=== PATIENT | female | born 1970 | race Caucasian/White ===

== ENCOUNTER → 2017-07-06 | Outpatient (CLI) | payer OTHER ==
--- NOTE | 2017-07-06 10:26 | RAD ---
Examination: 3 views of the right History history of right knee pain, history of patella fracture. Comparison: 12/12/2011 Findings There is mild joint space loss identified in the medial compartment. There is moderate joint space loss identified with femoral compartment. There is mild joint space loss identified in the lateral compartment femoral compartment There is a small bony projection identified in the intercondylar notch just to superior to the tibial spine grossly similar to prior exam could be osteophyte or loose body. Lucency identified in the inferior aspect of the patella probably old fracture grossly similar to prior exam. Small knee joint effusion. Impression 1. Unchanged exam.
== END | disposition home or self-care (01) ==
LOC: DXRAD 09:48
PROVIDERS: ATTEND Nurse Practitioner Family
DX: M25.461 Effusion, right knee (principal); M25.561 Pain in right knee
CPT/HCPCS: 73562

== ENCOUNTER → 2017-11-12 | Outpatient (CLI) | payer OTHER ==
--- NOTE | 2017-11-12 14:17 | RAD ---
DATE: 11/12/2017 EXAM: DIGITAL DIAGNOSTIC LT, BREAST LEFT HISTORY: Nodule in the upper outer left breast seen on an outside screening mammogram COMPARISON: Outside screening mammogram 10/31/2017 Findings: Diagnostic left breast mammogram: This study was interpreted with the benefit of Computerized Aided Detection (CAD). The breast parenchyma shows scattered fibroglandular densities. Breast parenchyma level B. Full field MLO view and spot compression MLO and cc views were obtained of the upper outer left breast. There is a 0.9 cm oval circumscribed mass at the 2:00 position 9 cm from the nipple in the left breast. There is a focal asymmetry at the 2:00 position 6 areas from the nipple in the left breast. Patient will proceed to ultrasound for further evaluation. Limited left breast ultrasound. Survey of the upper outer quadrant left breast was performed. There is a benign intramammary lymph node at the 2:00 position 9 cm from the nipple corresponding to the 0.9 cm nodule seen on mammogram. There is probable focal fibroglandular tissue at the 2:00 position 6 cm from the nipple with no suspicious mass. At the 1:00 position 2 cm from the nipple, there is a circumscribed hypoechoic structure with minimal internal debris, no internal blood flow, and no significant posterior acoustic enhancement. Impression: 1. At the 1:00 position 2 cm from the nipple in the left breast, subcentimeter hypoechoic structure with internal debris and may represent a complicated cyst, though indeterminate. Left breast ultrasound in 6 months is recommended. 2. At 2:00 position 6 cm from the nipple in the left breast, focal asymmetry which does not have a sonographic correlate and may represent focal fibroglandular tissue. Diagnostic left breast mammogram to include spot compression views and 6 month recommended. 3. At the 2:00 position, 9 cm from the nipple, benign intramammary lymph node. BI-RADS CATEGORY: 3 PROBABLY BENIGN FINDING(S)-SHORT INTERVAL FOLLOW-UP SUGGESTED RECOMMENDED FOLLOW-UP: 6M 6 MONTH FOLLOW-UP PQRS compliance statement: Patient information was entered into a reminder system with a target due date for the next mammogram. Mammography is a sensitive method for finding small breast cancers, but it does not detect them all and is not a substitute for careful clinical examination. A negative mammogram does not negate a clinically suspicious finding and should not result in delay in biopsying a clinically suspicious abnormality. "Our facility is accredited by the [employer] Mammography [employer]."
== END | disposition home or self-care (01) ==
LOC: MAMMO 10:08
PROVIDERS: ATTEND Specialist
DX: N63.20 Unspecified lump in the left breast, unspecified quadrant (principal)
CPT/HCPCS: 76641; 77065

== ENCOUNTER → 2019-03-07 | Outpatient (CLI) | payer OTHER ==
--- NOTE | 2019-03-07 11:45 | RAD ---
DATE: 03/07/2019 EXAM: DIGITAL DIAGNOSTIC BILATERAL, BREAST LEFT HISTORY: Follow-up left breast nodule COMPARISON: 10/31/2017, 11/12/2017 This study was interpreted with the benefit of Computerized Aided Detection (CAD). Breast Density: SCATTERED The breast parenchyma shows scattered fibroglandular densities. Breast parenchyma level B. FINDINGS: There is an unchanged small lobulated nodule in the posterior lateral aspect of the left breast most compatible with an intramammary lymph node. A slightly symmetric fibroglandular type density in the lateral aspect of the left breast is also unchanged. No new or enlarging breast densities are seen. No malignant type microcalcifications are evident. Left breast ultrasound, 03/07/2019: A targeted ultrasound exam of the left breast was performed for follow-up of a small nodule seen at the 1:00 location on 11/12/2017. A small hypoechoic nodule is redemonstrated at the 1:00 location approximately 2 cm in the nipple. There are low level internal echoes. There is posterior acoustic enhancement. Its margins are smooth. The appearance suggests a complicated cyst. It measures 5 x 4 x 4 mm, essentially unchanged since 11/12/2017. No other abnormality is currently seen at the 1:00 and 2:00 locations in the left breast. IMPRESSION: 1. Stable mammograms without evidence of malignancy. 2. Unchanged small hypoechoic nodule at the 1:00 location in the left breast, most likely a complicated cyst. Follow-up left breast ultrasound in 6 months and bilateral mammography at one year is suggested. BI-RADS CATEGORY: 3 PROBABLY BENIGN FINDING(S)-SHORT INTERVAL FOLLOW-UP SUGGESTED RECOMMENDED FOLLOW-UP: 6M 6 MONTH FOLLOW-UP PQRS compliance statement: Patient information was entered into a reminder system with a target due date for the next mammogram. Mammography is a sensitive method for finding small breast cancers, but it does not detect them all and is not a substitute for careful clinical examination. A negative mammogram does not negate a clinically suspicious finding and should not result in delay in biopsying a clinically suspicious abnormality. "Our facility is accredited by the [employer] Mammography [employer]."
== END | disposition home or self-care (01) ==
LOC: MAMMO 09:47
PROVIDERS: ATTEND Specialist
DX: N63.21 Unspecified lump in the left breast, upper outer quadrant (principal)
CPT/HCPCS: 76641; 77066